=== PATIENT | female | born 1950 | race Native Hawaiian/Other Pacific Islander ===

== ENCOUNTER 2017-12-20 01:31 | Emergency (ER) | payer OTHER ==
[~2017-12-20] VITALS: Ht 167.6 cm; Wt 78.5 kg
[~2017-12-20 01:31] MED LIST: ACCUCHECKS; DEPAKENE250 MG/5 M PO; DOK100 MG PO; FLUOXETINE20 MG PO; FURO40TA93 PO; HYDR-3182 PO; LEVEMIR FL100 UNIT/M SC; MEGE40TA32 PO; MUPI2OIN2 TOP; NOVOLOG100 MG/ML SC; NYST100016 EX; OLANZAPINE10 MG PO; OMEPRAZOLE20.6 MGDR PO; RISP0.5T2 PO; SITA50TA2 PO; SPRITAM500 MG PO; SUCRALFATE1 GM PO; VALPROIC ACID10 ML PO
[2017-12-20 02:32] LABS: PLATELET COUNT 174 K/uL (152-353)
[2017-12-20 02:43] LABS: POTASSIUM 3.9 mmol/L (3.6-5.2); SODIUM 131 mmol/L (136-145)
[2017-12-20] MEDS ORDERED: SITA50TA2 PO (05:48)
== END 2017-12-20 05:07 | disposition other institution (70) ==
LOC: ED 01:31
PROVIDERS: Internal Medicine
DX: M54.89 Other dorsalgia (principal); M25.552 Pain in left hip; M25.551 Pain in right hip; R31.9 Hematuria, unspecified; E13.69 Other specified diabetes mellitus with other specified complication; R81 Glycosuria; R80.8 Other proteinuria; Z04.6 Encounter for general psychiatric examination, requested by authority
CPT/HCPCS: 36415; 80053; 80307; 80320; 80329; 81000; 85027; 87086; 87088; 93005; 96372; 99285; J1885